=== PATIENT | male | born 1945 | race Caucasian/White ===

== ENCOUNTER → 2016-12-27 | Outpatient (CLI) | payer MEDICARE, OTHER ==
[~2016-12-27] MED LIST: ASPI-110 PO; ATEN50TA PO; CLON0.5T PO; COMMODE 3-IN-11 MIS; COMMODE BEDSIDE1 MI1; DILA100C PO; FURO40TA PO; MULT-65 PO; OMEP20TA PO; PERC5TAB12 PO; POTA-163 PO; ROSU40 PO; WALKER WHEELS/F1 MIS; XARE10TA PO; ZETI10TA5 PO
[2016-12-27 12:23] LABS: AUTOMATED NEUTROPHIL # 5.5 TH/MM3 (1.8-7.7); BASOPHIL % 0.3 % (0.0-2.0); EOSINOPHIL % 0.2 % (0.0-4.0); HEMATOCRIT 43.7 % (39.0-51.0); LYMPH % 20.1 % (9.0-44.0); LYMPHOCYTE # 1.5 TH/MM3 (1.0-4.8); MEAN CORPUSCULAR HEMOGLOBIN 31.3 PG (27.0-34.0); MEAN CORPUSCULAR HGB CONC 34.4 % (32.0-36.0); MONO % 7.6 % (0.0-8.0); NEUT % 71.8 % (16.0-70.0); WHITE BLOOD COUNT 7.6 TH/MM3 (4.0-11.0)
[2016-12-27 12:27] LABS: HEMO FLAGS AUTO DIFF
[2016-12-27 12:29] LABS: PROTHROMBIN TIME - PATIENT 10.7 SEC (9.8-11.6)
[2016-12-27 12:44] LABS: ANION GAP 5 MEQ/L (5-15); AST (GOT) 32 U/L (15-37); BICARBONATE 29.9 MEQ/L (21.0-32.0); BLOOD UREA NITROGEN 9 MG/DL (7-18); CHLORIDE 104 MEQ/L (98-107); GLOMERULAR FILTRATION RATE 84 ML/MIN (>89); GLUCOSE,FASTING 99 MG/DL (74-99); POTASSIUM 3.7 MEQ/L (3.5-5.1); SODIUM (NA) 139 MEQ/L (136-145)
[2016-12-27 12:46] LABS: ALT (GPT) 50 U/L (12-78)
[2016-12-27 12:47] LABS: ALKALINE PHOSPHATASE 107 U/L (45-117); TOTAL BILIRUBIN ADULT 0.3 MG/DL (0.2-1.0)
[2016-12-27 13:31] LABS: PLATELET COUNT 75 TH/MM3 (150-450); SCAN/DIFF AUTO DIFF CONFIRMED
[2016-12-27 14:06] LABS: BLOOD, URINE NEG (NEG); COMMENT (UR) CULT NOT INDICATED; CULTURE IF INDICATED CULT NOT INDICATED; GLUCOSE,URINE NEG (NEG); KETONE, URINE NEG (NEG); NITRITE,URINE NEG (NEG); URINE COLOR LIGHT-YELLOW (YELLW/STRAW)
--- NOTE | 2016-12-27 14:39 | RADRPT ---
EXAM DATE/TIME: 12/27/2016 11:59 [facility] COMPARISON: No previous studies available for comparison. INDICATIONS : Pre-op to evaluate for pneumonia, pneumothorax, or communicable diseases. Right total hip replacemen t. MEDICAL HISTORY : None. SURGICAL HISTORY : None. ENCOUNTER: Initial ACUITY: 1 day PAIN SCORE: 0/10 LOCATION: Bilateral chest FINDINGS: The heart and mediastinal structures are normal. The pulmonary vascular pattern is normal. The lung s are clear. Degenerative changes are noted throughout the thoracic spine. Bilateral shoulder repla cements are noted. CONCLUSION: 1. No acute cardiopulmonary disease. 2. Degenerative changes throughout the thoracic spine. Valentin Calhoun MD on December 27, 2016 at 14:27 Board Certified Radiologist. This report was verified electronically.
--- NOTE | 2016-12-28 13:02 | EKG ---
Date Performed: 12/27/2016 Time Performed: 11:06:31 PTAGE: 71 years EKG: Sinus rhythm NORMAL ECG NO PREVIOUS TRACING DOCTOR: Carlo Dale Interpretating Date/Time 12/28/2016 12:53:45
== END ==
LOC: CPRE 10:11
PROVIDERS: ATTEND Orthopaedic Surgery
DX: Z01.810 Encounter for preprocedural cardiovascular examination (principal); Z01.812 Encounter for preprocedural laboratory examination
CPT/HCPCS: 36415; 71020; 80053; 81001; 85025; 85610; 93005

== ENCOUNTER 2017-01-01 10:19 | Inpatient (IN) | payer MEDICARE, OTHER ==
[~2017-01-01] VITALS: Ht 172.7 cm; Wt 81.0 kg
[~2017-01-01 10:19] MED LIST changes: -COMMODE 3-IN-11 MIS; -COMMODE BEDSIDE1 MI1; -PERC5TAB12 PO; -WALKER WHEELS/F1 MIS; -XARE10TA PO
[2017-01-11] MEDS ORDERED: SODIUM CHLORID 0.9% 500 ML IV PRN (11:30)
[2017-01-11] MEDS ORDERED: LACTATED RINGER'S 1000 ML IV PRN (11:30)
[2017-01-11] MEDS ORDERED: METOPROLOL TARTRATE 25 MG TAB PO PRN (11:30)
[2017-01-11] MEDS ORDERED: INSULIN HUMAN REGULAR 1,000 UNITS/10 ML VIAL SQ PRN (11:30)
[2017-01-11] MEDS ORDERED: POVIDONE IODINE 5% (ANTISEPSIS KIT) 4 APPLICATIONS EACH NARE PRN (11:30)
[2017-01-11] MEDS ORDERED: CHLORHEXIDINE GLUCONATE 2 % 1 PACK (2 CLOTHS) TOPICAL PRN (11:30)
[2017-01-11] MEDS ORDERED: DILA100C PO (11:35)
[2017-01-11] MEDS ORDERED: VANCOMYCIN 1000 MG/NS 250 ML (for <70 kg) IV SCH ×2 (11:45)
[2017-01-11] MEDS ORDERED: POVIDONE IODINE 7.5% SCRUB 118 ML BOTTLE TOPICAL SCH (11:45)
[2017-01-11] MEDS ORDERED: TRANEXAMIC ACID 1 GM PRIOR TO PROCEDURE IV SCH ×2 (11:45)
[2017-01-11] MEDS ORDERED: ceFAZolin 2 GM PREMIX 50 ML IV SCH (11:45)
[2017-01-11] MEDS ORDERED: EXPAREL PERI-ARTICULAR INJECTION (TOTAL VOL. 60 ML) P-ARTICULR SCH ×2 (11:45)
[2017-01-11] MEDS ORDERED: GLYCOPYRROLATE 1 MG/5 ML SYRINGE IV PUSH ONE (12:00)
[2017-01-11] MEDS ORDERED: MIDAZOLAM HCL 2 MG/2 ML VIAL IV ONE (12:00)
[2017-01-11] MEDS ORDERED: NEOSTIGMINE 3 MG/3 ML SYR IV ONE (12:00)
[2017-01-11] MEDS ORDERED: DEXAMETHASONE SOD PHOS 4 MG/ML VIAL IV ONE (12:00)
[2017-01-11] MEDS ORDERED: ONDANSETRON HCL 4 MG/2 ML VIAL IV PUSH ONE (12:00)
--- NOTE | 2017-01-11 13:09 | HHI.DS ---
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 Failed conservative treatment and now presents for right MARYANA. Hospital Course patient was taken to OR in stable condition for the above procedure which he tolerated well. he was extubated and transferred to PACU in stable condition. The rest of his stay was uneventful. His diet was advanced. he had full return of bowel and bladder function. his pain meds was converted from iv to po. He was seen by PT and dc with PT recommendation. WBAT. he was seen and examined by our team on the day of discharge and found to be in stable. d/c home with [facility]. f /u 2 wks. Stable at d/c. Pt Condition on Discharge: Good Discharge Disposition: Disch w/ Home Health Serv Discharge Instructions Diet Instructions: As Tolerated, No Restrictions, Heart Healthy Diet Activities You Can Perform: Regular-No Restrictions Activities to Avoid: Driving for 24 hrs, Weight Bearing Olaf Weinberg Jr., MD Jan 11, 2017 13:09
[2017-01-11] MEDS ORDERED: PERC5TAB12 PO (13:10)
[2017-01-11] MEDS ORDERED: XARE10TA PO (13:10)
[2017-01-11] MEDS ORDERED: MIDAZOLAM HCL 2 MG/2 ML VIAL ONE (13:25)
[2017-01-11] MEDS ORDERED: GENTAMICIN SULFATE 80 MG/2 ML VIAL ONE (13:25)
[2017-01-11] MEDS ORDERED: FAMOTIDINE 20 MG/2 ML VIAL ONE (13:25)
[2017-01-11] MEDS ORDERED: ACETAMINOPHEN 1000 MG/100 ML 100 ML IV ONE (13:26)
[2017-01-11] MEDS ORDERED: SUGAMMADEX SODIUM 200 MG/2 ML VIAL IV PUSH ONE ×2 (13:26)
[2017-01-11] MEDS ORDERED: TRANEXAMIC ACID 1 GM POST-OP IV SCH ×2 (15:00)
[2017-01-11] MEDS ORDERED: ceFAZolin INJ 1,000 MG VIAL ONE (15:20)
[2017-01-11] MEDS ORDERED: HYDROmorphone HCL PF 2 MG/ML VIAL ONE (15:20)
[2017-01-11 17:27] LABS: HEMATOCRIT 31.7 % (39.0-51.0); REVIEW FLAG FINAL
[2017-01-11] MEDS ORDERED: SODIUM CHLORIDE 0.9% FLUSH 10 ML FLUSH IV FLUSH PRN (17:30)
[2017-01-11] MEDS ORDERED: LACTULOSE SYRUP 20 GM/30 ML CUP PO PRN (17:30)
[2017-01-11] MEDS ORDERED: oxyCODONE/ACETAMINOPHEN 5 MG/325 MG TAB PO PRN (17:30)
[2017-01-11] MEDS ORDERED: Post-op Orders (for Pharmacy) MISC XX ONE (17:30)
[2017-01-11] MEDS ORDERED: SENNOSIDES 8.6 MG TAB PO PRN (17:30)
[2017-01-11] MEDS ORDERED: PROMETHAZINE HCL 25 MG SUPP RECTAL PRN (17:30)
[2017-01-11] MEDS ORDERED: ZOLPIDEM TARTRATE 5 MG TAB PO PRN (17:30)
[2017-01-11] MEDS ORDERED: BISACODYL 10 MG SUPP RECTAL PRN (17:30)
[2017-01-11] MEDS ORDERED: ACETAMINOPHEN 325 MG TAB PO PRN (17:30)
--- NOTE | 2017-01-11 17:30 | RADRPT ---
EXAM DATE/TIME: 01/11/2017 15:37 [facility] COMPARISON: No previous studies available for comparison. INDICATIONS : Total right hip arthroplasty. MEDICAL HISTORY : None. SURGICAL HISTORY : Total hip replacement, left. ENCOUNTER: Initial ACUITY: 1 day PAIN SCORE: Non-responsive. LOCATION: Right hip FINDINGS: Postoperative bilateral total hip replacement. No complicating features on the right. CONCLUSION: 1. Postoperative right total hip replacement. Luis Briscoe MD on January 11, 2017 at 17:25 Board Certified Radiologist. This report was verified electronically.
[2017-01-11] MEDS ORDERED: DO NOT ADM ANY ANTICOAGULANT DRUGS PRN (17:33)
--- NOTE | 2017-01-11 17:35 | PD.OP ---
cc: Olaf Weinberg Jr., MD Operative Report Date of Surgery: Jan 11, 2017 Preoperative Diagnosis: Right hip end-stage arthritis from avascular necrosis Postoperative Diagnosis: Same Procedure: Right total hip replacement through anterior approach Anesthesia: Gen. Surgeon: Olaf Weinberg Supervisor Boarding(s): MAGDA Orellana The surgical procedure was assisted by my Advanced Registered Nurse Practitioner. My CAM MAKER presence was necessary throughout this case for the manipulation and positioning of the surgical extremity. My CAM MAKER was assisting me throughout the duration of this procedure. The skill set of an Advance Registered Nurse Practitioner was medically necessary to complete this procedure. During the surgical case, the technology project manager was working at the back table and the Advance Registered Nurse Practitioner was directly assisting me. Resident Surgeon: None Operation and Findings: DETAILS OF PROCEDURE: This patient has a long history of right hip pain. Patient was found to have severe osteoarthritis secondary to avascular necrosis. The patient had radiographic evidence of joint space narrowing with [id number] arthritis and osteophytes around the acetabulum as well as the femoral head. There was also some cystic changes. The patient failed conservative treatment with pain medications, anti-inflammatories, physical therapy, assistive devices including a cane, as well as therapeutic injection of the hip. The patient wished to proceed with surgery and informed consent was obtained. Operative site was marked. I discussed both posterior approach and anterior approach. The patient decided on anterior approach. Patient was brought to OR and placed on OR table. IV sedation and general anesthesia was administered by anesthesiologist. Patient positioned on a Juli table and was given IV antibiotics. Time-out procedure was performed. The right hip and thigh were prepped with alcohol followed by Hibiclens. The thigh was draped in the usual sterile fashion. Clean Air Suite was used for this procedure. The procedure began with a 5-inch incision over the anterolateral thigh. Subcutaneous tissue was dissected with Bovie. The fascia over the tensa fasciae latae was incised. Care was taken to avoid injury to the lateral femoral cutaneous nerve. The tensor muscle was retracted laterally. Sartorius was retracted medially. Retractors were now placed. The reflected head of the rectus is now elevated. A capsulotomy was performed over the anterior head capsule. Sutures were placed to help retract the capsule. At this point the femoral head and neck were identified. With soft tissue protected, oscillating saw was used to make a cut through the femoral neck, the femoral head was now removed. At this point attention was turned to preparation of the acetabulum. The labrum was excised. The acetabulum was sequentially reamed up to size 53. A 54 [place] cup was now placed. Fluoroscopy was used to aid in identification of appropriate version. Cup was fully impacted and found to have excellent fit. Hole eliminator was now placed. The liner was now impacted into the cup. At this point the hip was externally rotated. A hook was placed around the proximal femur. The capsule was released off the lateral and medial femur. The hip was now extended and adducted. Retractors were placed around the proximal femur to allow for exposure. A box osteotome was used to remove the lateral cortex of the femoral neck. A broach was used to help lateralize the prosthesis. Canal finder was used to create a path down the canal. Next, the canal was sequentially broached up to size 6. This was found to be an excellent fit. Calcar planer was placed. A standard head was placed, hip was reduced. Trial head was now was placed and the hip was found to have excellent stability with good range of motion. The leg lengths were measured under fluoroscopy and found to be equal compared to preoperatively. Trial broach was removed. The Corail stem was opened. Stem was fully impacted into the proximal femur in appropriate version. The femoral head was placed. The hip was again reduced. Fluoroscopy confirmed excellent alignment of prosthesis. The wound was thoroughly irrigated and capsule was closed with #1 Vicryl. The fascia over the tensor fasciae muscle was closed with #1 Vicryl, subcutaneous tissue was closed with 3-0 Vicryl and the skin was closed with cici and Dermabond skin closure. The capsule layers were injected with a mixture of saline and bupivicaine. Dressings were applied. The patient was transferred to Recovery Room in stable condition. IMPLANTS USED Striker accolade II 54 mm tritanium cluster cup 6.525 mLm screw 36 neutral liner 6/132 stem 36+0 ceramic head POSTP-OP PLAN OF ACTIVITY Antibiotics: Ancef, vancomycin Antiocoagulation: Lovenox while hospitalized (xeralto at discharge for 30 days) Weight bearing status: wbat PT/OT: Encourage at least 3 times a day Dressing: Do not remove Dispo: expected discharge 3 days. likely SNF Olaf Weinberg Jr., MD Jan 11, 2017 17:35
[2017-01-11] MEDS: KETOROLAC TROMETHAMINE 30 MG/ML (IVP) VIAL IVP SCH ×2 (18:00→23:54)
[2017-01-11] MEDS ORDERED: ENOXAPARIN SODIUM 30 MG/0.3 ML SYRINGE SQ SCH (18:00)
[2017-01-11] MEDS ORDERED: TRANEXAMIC ACID INJ 1,000 MG in SODIUM CHLORIDE 0.9% INJ 100 ML IV SCH (18:30)
[2017-01-11] MEDS ORDERED: *morphine SULFATE 8 MG/ML PERIprocedure ONLY ONE ×2 (18:38→19:19)
--- NOTE | 2017-01-11 18:49 | RADRPT ---
EXAM DATE/TIME: 01/11/2017 18:08 [facility] COMPARISON: HIP RIGHT (AP&LAT 2/3VWS) W AP PELVIS, January 11, 2017, 15:37. INDICATIONS : Post op right total hip. MEDICAL HISTORY : Unobtainable. SURGICAL HISTORY : unobtainable. ENCOUNTER: Subsequent ACUITY: 1 day PAIN SCORE: Non-responsive. LOCATION: Right hip FINDINGS: Patient is immediately postoperative right total hip arthroplasty. Alignment is normal. No fracture o r evidence of hardware failure/loosening. Radiographically apparent of the soft tissues within normal limits. CONCLUSION: Right total hip arthroplasty has an expected postoperative radiographic appearance. No acute complica tion demonstrated. Noe Bhandari MD on January 11, 2017 at 18:47 Board Certified Radiologist. This report was verified electronically.
[2017-01-11 18:53] LABS: HEMATOCRIT 33.3 % (39.0-51.0); REVIEW FLAG FINAL
[2017-01-11] MEDS: SODIUM CHLOR 0.9% 1000 ML INJ 1,000 ML IV SCH (19:15)
[2017-01-11 20:00] VITALS: BP 105/62; PULSE 75; RESP 18; TEMP 96; O2SAT 100
[2017-01-11 20:27] VITALS: O2SAT 99
[2017-01-11] MEDS: DOCUSATE SODIUM 50 MG/SENNA 8.6 MG TAB PO SCH (20:51)
[2017-01-11] MEDS: oxyCODONE/ACETAMINOPHEN 5 MG/325 MG TAB PO PRN (20:51)
[2017-01-11] MEDS: SODIUM CHLORIDE 0.9% FLUSH 10 ML FLUSH IV FLUSH SCH (20:51)
[2017-01-11] MEDS: VANCOMYCIN INJ 1,000 MG in SODIUM CHLOR 0.9% 250 ML INJ 250 ML IV SCH (23:52)
[2017-01-11] MEDS: MORPHINE SULFATE 8 MG/ML INJ IV PUSH PRN (23:54)
[2017-01-12] VITALS (7 sets, daily range): BP systolic 92–137; BP diastolic 52–64; PULSE 77–81; RESP 16–18; TEMP 96.7–98.3; O2SAT 96–100
[2017-01-12] MEDS: oxyCODONE/ACETAMINOPHEN 5 MG/325 MG TAB PO PRN ×3 (04:55→21:05)
[2017-01-12] MEDS ORDERED: ENOXAPARIN SODIUM 30 MG/0.3 ML SYRINGE SQ SCH (06:00)
[2017-01-12] MEDS: ENOXAPARIN SODIUM 30 MG/0.3 ML SYRINGE SQ SCH ×2 (06:07→17:59)
[2017-01-12] MEDS: KETOROLAC TROMETHAMINE 30 MG/ML (IVP) VIAL IVP SCH ×3 (06:08→18:01)
[2017-01-12] MEDS: FUROSEMIDE 40 MG TAB PO SCH (08:43)
[2017-01-12] MEDS: DOCUSATE SODIUM 50 MG/SENNA 8.6 MG TAB PO SCH ×2 (08:43→21:04)
[2017-01-12] MEDS: ATENOLOL 50 MG TAB PO SCH (08:43)
[2017-01-12] MEDS: PHENYTOIN SODIUM 100 MG CAP PO SCH (08:44)
[2017-01-12] MEDS: POTASSIUM CHLORIDE 20 MEQ CONTROLLED RELEASE TAB PO SCH (08:44)
[2017-01-12] MEDS: SODIUM CHLORIDE 0.9% FLUSH 10 ML FLUSH IV FLUSH SCH ×2 (08:45→21:04)
[2017-01-12] MEDS: SODIUM CHLOR 0.9% 1000 ML INJ 1,000 ML IV SCH (08:46)
[2017-01-12] MEDS ORDERED: ATORVASTATIN 40 MG TAB PO SCH (09:00)
[2017-01-12] MEDS ORDERED: EZETIMIBE 10 MG TAB PO SCH (09:00)
[2017-01-12] MEDS ORDERED: COMMODE BEDSIDE1 MI1 (09:43)
--- NOTE | 2017-01-12 10:42 | PD.CONS ---
HPI Service [facility] Hospitalists Consult Requested By Dr. Weinberg Reason for Consult Medical Management Primary Care Physician Kilo Saravia M.D. Diagnoses: (1) Avascular necrosis of bone of right hip (2) Status post total hip replacement, right History of Present Illness Written by Rebeca Lewis, acting as scribe for Dr. Cook on 01/12/17 at 10: 37. 71-year-old male with history of CAD s/p stents x2, HTN, HLD, GERD, anxiety, and daily marijuana use presented to the hospital with right hip end-stage arthritis from avascular necrosis, now s/p right total hip replacement by Dr. Weinberg on 01/11. Hospitalists consulted for medical management. The patient reports other than ongoing right hip pain, he has been feeling well prior to admission. He denies any recent fevers/chills, lightheadedness, dizziness, chest pains, palpitations, shortness of breath, abdominal or urinary complaints. His last bowel movement was yesterday. He had a stress test done 1 week ago through his collection technician Dr. Story's office which was reportedly unremarkable. He denies any history of arrhythmia or CHF. Denies any history of DVT or PE. Currently post surgery, his pain is fairly well controlled with Percocet and IV morphine. He has no other medical complaints at this time. Review of Systems Except as stated in HPI: all other systems reviewed are Neg Past Family Social History Allergies: Coded Allergies: No Known Allergies (Unverified , 01/11/17) Past Medical History Osteoarthritis Right hip avascular necrosis CAD s/p stents x2 HTN HLD GERD anxiety Past Surgical History Bilateral hip surgeries Bilateral shoulder surgeries Cardiac catheterization with stents x2 Tonsillectomy Reported Medications Dilantin (Phenytoin Extended) 100 Mg Cap 300 Mg PO DAILY Multi-Vitamin Daily (Multiple Vitamin) 1 Tab Tab 1 Tab PO DAILY Omeprazole 20 Mg Tab 20 Mg PO DAILY Clonazepam 0.5 Mg Tab 0.5 Mg PO DAILY Atenolol 50 Mg Tab 50 Mg PO DAILY Potassium Chloride ER (Potassium Chloride) 20 Meq Tab 20 Meq PO DAILY Furosemide 40 Mg Tab 40 Mg PO DAILY Zetia (Ezetimibe) 10 Mg Tab 10 Mg PO DAILY Crestor (Rosuvastatin Calcium) 40 Mg Tab 40 Mg PO DAILY Active Ordered Medications Current Medications Medications (Trade) Dose Ordered Sig/Jose Route Start Time Stop Time Status Last Admin Lactated Ringer's 1,000 ml @ 30 mls/hr Q24H PRN IV 01/11/17 11:30 01/14/17 11:29 01/11/17 11:40 Sodium Chloride 500 ml @ 30 mls/hr [id number] PRN IV 01/11/17 11:30 01/14/17 11:29 (Lopressor) 25 mg BOARDING KENNEL OR CATTERY OPERATOR PRN PO 01/11/17 11:30 01/14/17 11:29 (Betadine 5% Antisepsis Kit) 1 applic BOARDING KENNEL OR CATTERY OPERATOR PRN EACH NARE 01/11/17 11:30 01/14/17 11:29 01/11/17 11:45 (Chlorhexidine 2% Cloth) 3 pack BOARDING KENNEL OR CATTERY OPERATOR PRN TOPICAL 01/11/17 11:30 01/14/17 11:29 (NovoLIN R INJ) See Protocol Table ... BOARDING KENNEL OR CATTERY OPERATOR PRN SQ 01/11/17 11:30 01/14/17 11:29 (Betadine 7.5% Scrub) 1 applic ONCE TOPICAL 01/11/17 11:45 01/14/17 11:44 01/11/17 11:45 Cefazolin Sodium/ Dextrose 50 ml @ 100 mls/hr BOARDING KENNEL OR CATTERY OPERATOR IV 01/11/17 11:45 01/14/17 11:44 Vancomycin HCl 1000 mg/Sodium Chloride 250 ml @ 250 mls/hr BOARDING KENNEL OR CATTERY OPERATOR IV 01/11/17 11:45 01/14/17 11:44 01/11/17 11:50 (Tenormin) 50 mg DAILY PO 01/12/17 09:00 01/12/17 08:43 (Zetia) 10 mg DAILY PO 01/12/17 09:00 01/12/17 08:43 (Lasix) 40 mg DAILY PO 01/12/17 09:00 01/12/17 08:43 (Dilantin) 300 mg DAILY PO 01/12/17 09:00 01/12/17 08:44 (KCl) 20 meq DAILY PO 01/12/17 09:00 01/12/17 08:44 (Lipitor) 40 mg DAILY PO 01/12/17 09:00 01/12/17 08:43 (NS Flush) 2 ml UNSCH PRN IV FLUSH 01/11/17 17:30 (NS Flush) 2 ml BID IV FLUSH 01/11/17 21:00 01/12/17 08:45 Vancomycin HCl 1000 mg/Sodium Chloride 250 ml @ 250 mls/hr Q12H IV 01/12/17 00:00 01/12/17 12:59 01/11/17 23:52 (Morphine Inj) 5 mg Q3H PRN IV PUSH 01/11/17 17:30 01/11/17 23:54 (Percocet 5-325 Mg) 1 tab Q4H PRN PO 01/11/17 17:30 (Percocet 5-325 Mg) 2 tab Q4H PRN PO 01/11/17 17:30 01/12/17 04:55 (Tylenol) 650 mg Q6H PRN PO 01/11/17 17:30 (Toradol Inj) 15 mg Q6H IVP 01/11/17 18:00 01/13/17 12:01 01/12/17 06:08 (Phenergan) 25 mg Q4H PRN PO 01/11/17 17:30 (Phenergan Supp) 25 mg Q4H PRN RECTAL 01/11/17 17:30 (Theragran M Tab) 1 tab BID PO 01/12/17 21:00 03/13/17 20:59 (Ambien) 5 mg HS PRN PO 01/11/17 17:30 (Bruna-Colace) 1 tab BID PO 01/11/17 21:00 01/12/17 08:43 (Milk Of Magnesia Liq) 30 ml Q12H PRN PO 01/11/17 17:30 (Senokot) 17.2 mg Q12H PRN PO 01/11/17 17:30 (Dulcolax Supp) 10 mg DAILY PRN RECTAL 01/11/17 17:30 (Lactulose Liq) 30 ml DAILY PRN PO 01/11/17 17:30 Sodium Chloride 1,000 ml @ 75 mls/hr [id number] IV 01/11/17 19:15 01/12/17 08:46 Miscellaneous Information ALL NURSING DEPARTME... UNSCH PRN .XX 01/11/17 17:33 01/12/17 17:32 (Lovenox Inj) 30 mg Q12H SQ 01/12/17 06:00 01/12/17 06:07 Family History Father with significant heart disease, 4 MIs total, 1st TX at age 45, last TX at age 65 Mother with Alzheimer's, age 87 Social History Denies any tobacco or alcohol use Smokes marijuana 2-3x/day Denies any other illicit drug use Physical Exam Vital Signs Vital Signs Date Time Temp Pulse Resp B/P (MAP) Pulse Ox O2 Delivery O2 Flow Rate FiO2 01/12/17 08:16 16 01/12/17 04:00 96.7 81 17 92/54 (67) 100 01/12/17 00:00 97.1 78 16 98/58 (71) 100 01/11/17 20:27 99 Nasal Cannula 2.00 01/11/17 20:15 100 Nasal Cannula 2.00 01/11/17 20:00 96.0 75 18 105/62 (76) 100 01/11/17 19:38 97.8 74 17 116/68 (84) 100 Nasal Cannula 3 01/11/17 19:00 64 15 127/71 (89) 99 Nasal Cannula 3 01/11/17 18:45 71 15 123/68 (86) 98 Nasal Cannula 3 01/11/17 18:30 74 16 123/70 (87) 98 Nasal Cannula 3 01/11/17 18:15 78 15 128/72 (90) 98 Nasal Cannula 3 01/11/17 18:00 97.4 91 15 123/77 (92) 99 Nasal Cannula 3 01/11/17 11:30 98.3 57 20 115/64 (81) 99 Physical Exam GENERAL: Well-nourished, well-developed pleasant male patient in [facility]. SKIN: Warm and dry. No rash. HEAD: Normocephalic. Atraumatic. EYES: Pupils equal and round. No scleral icterus. No injection or drainage. ENT: No nasal bleeding or discharge. Mucous membranes pink and moist. NECK: Supple. Trachea midline. +JVD. CARDIOVASCULAR: Regular rate and rhythm. S1, S2 noted. No murmur appreciated. RESPIRATORY: No accessory muscle use. Clear to auscultation. Breath sounds equal bilaterally. GASTROINTESTINAL: Abdomen soft, non-tender, nondistended. Normoactive bowel sounds x4. MUSCULOSKELETAL: No obvious deformities. Extremities without clubbing, cyanosis , or edema. NEUROLOGICAL: Awake and alert. No obvious cranial nerve deficits. Motor grossly within normal limits. Bilateral upper extremity strength 5/5. Lower extremity strength testing deferred secondary to surgery. Normal speech. PSYCHIATRIC: Appropriate mood and affect; insight and judgment normal. Laboratory Laboratory Tests Test 01/11/17 16:43 01/11/17 18:28 Hemoglobin 11.2 11.3 Hematocrit 31.7 33.3 Result Diagram: 01/11/17 1828 Imaging Last Impressions Hip and Pelvis X-Ray 01/11/17 0000 Signed Impressions: Service Date/Time: December 18:08 - CONCLUSION: Right total hip arthroplasty has an expected postoperative radiographic appearance. No acute complication demonstrated. Noe Bhandari MD Assessment and Plan Problem List: (1) Status post total hip replacement, right ICD Code: Z96.641 - Presence of right artificial hip joint (2) Avascular necrosis of bone of right hip ICD Code: M87.051 - Idiopathic aseptic necrosis of right femur (3) CAD (coronary artery disease) ICD Code: I25.10 - Atherosclerotic heart disease of [place] coronary artery without angina pectoris Status: Chronic (4) HTN (hypertension) ICD Code: I10 - Essential (primary) hypertension Status: Chronic (5) HLD (hyperlipidemia) ICD Code: E78.5 - Hyperlipidemia, unspecified Status: Chronic (6) GERD (gastroesophageal reflux disease) ICD Code: K21.9 - Gastro-esophageal reflux disease without esophagitis Status: Chronic (7) Anxiety ICD Code: F41.9 - Anxiety disorder, unspecified Status: Chronic Assessment and Plan 71-year-old male with history of CAD s/p stents x2, HTN, HLD, GERD, anxiety, and daily marijuana use presented to the hospital with right hip end-stage arthritis from avascular necrosis, now s/p right total hip replacement by Dr. Weinberg on 01/11. Hospitalists consulted for medical management. Right Hip End-Stage Arthritis with Avascular Necrosis: s/p Right Total Hip Replacement 01/11/[address] Weinberg. -continue pain control with percocet prn and IV morphine prn -DVT prophylaxis with Xarelto per ortho -anticipate discharge on Monday 01/15 per attending -bowel regimen while on narcotics, monitor BMs CAD/HTN/HLD: chronic, appears stable. Patient had outpatient stress test 1 week ago, reportedly unremarkable. Banking Representative is Dr. Story. -continue home medications including zetia, crestor, atenolol, lasix with KCl replacement -monitor BP, adjust antihypertensives as needed Anxiety: chronic, stable -continue patient's home clonazepam 0.5mg daily GERD: chronic, stable -continue PPI DVT Prophylaxis: Xarelto Discussed Condition With Patient, RN Medical Decision Making MDM Remarks This note was transcribed by anitha Lewis. I, Dr. Andres Cook personally performed the history, physical exam, and medical decision making; and confirmed the accuracy of the information in the transcribed note. Authenticated by Dr. Andres Cook on 01/12/17 at 15:29. Rebeca Lewis PA-C Jan 12, 2017 10:42 Andres Cook MD Jan 12, 2017 15:30
[2017-01-12] MEDS: VANCOMYCIN INJ 1,000 MG in SODIUM CHLOR 0.9% 250 ML INJ 250 ML IV SCH (12:01)
--- NOTE | 2017-01-12 20:30 | HHI.FF ---
Face to Face Verification Diagnosis: (1) Status post total hip replacement, right Physical Therapy Gait training Hip: Total hip, Other (anterior hip precautions.), Protocol: Right Right LE Weight Bearing: WB as tolerated Right LE Range of Motion: Active ROM Nursing RN: 3 days/week x 2 weeks Nursing: Dressing changes, Other Dressing Changes: Do not change dressing, Other (reinforce only) I have seen patient Josr Grider on 01/12/17. My clinical findings support the need for the requested home health care services because: Limited ability to care for self High risk of falls I certify that my clinical findings support that this patient is homebound because: Post-op weakness Unsteady gait/balance Unable to use public transportation Olaf Weinberg Jr., MD Jan 12, 2017 20:30
[2017-01-12] MEDS ORDERED: WALKER WHEELS/F1 MIS (20:35)
[2017-01-12] MEDS ORDERED: COMMODE 3-IN-11 MIS (20:35)
--- NOTE | 2017-01-12 20:37 | PD.ORT.PN ---
Subjective Subjective Remarks Doing well. No issues. No chest pain or shortness of breath Objective Vitals Vital Signs Date Time Temp Pulse Resp B/P (MAP) Pulse Ox O2 Delivery O2 Flow Rate FiO2 01/12/17 18:58 Room Air 01/12/17 16:00 98.1 79 18 109/53 (71) 96 01/12/17 13:25 16 01/12/17 13:24 16 01/12/17 12:00 98.3 77 18 101/55 (70) 100 01/12/17 09:10 98 21 01/12/17 08:00 97.5 80 18 105/52 (69) 98 01/12/17 04:00 96.7 81 17 92/54 (67) 100 01/12/17 00:00 97.1 78 16 98/58 (71) 100 I/O 01/11/17 01/11/17 01/11/17 01/12/17 01/12/17 01/12/17 07:00 15:00 23:00 07:00 15:00 23:00 Intake Total 250 ml 3942 ml 1580 ml 600 ml Output Total 1225 ml 200 ml 600 ml Balance 250 ml 2717 ml 1380 ml 0 ml Intake Oral 480 ml 480 ml 600 ml IV Total 250 ml 200 ml 1100 ml Platelets 762 ml Other 2500 ml Output Urine Total 725 ml 200 ml 600 ml Estimated Blood Loss 500 ml # Voids 1 # Bowel Movements 0 0 0 Result Diagram: 01/11/171827 Objective Remarks Alert awake and oriented -3. No acute distress. Pulmonary: Normal respiratory effort. Right lower extremity: Neurovascularly intact, +EHL/FHL, dressing clean, dry and intact. + PT/DP pulses. Supple compartments. Negative Homans sign. Left lower extremity: neurovascularly intact Assessment & Plan Assessment and Plan POD #1, Right total hip arthroplasty Doing well, expected postop pain, no complaints. Antibiotics: Ancef, vancomycin DVT prophylaxis, Lovenox while in hospital (xeralto at discharge for 4 weeks) Weightbearing status: As tolerated Dressing change: Reinforce as needed. Do not change. Dispo: Stable and okay to discharge from orthopedic standpoint. Likely DC home with home health,Sunday or Sunday Follow-up: 2 weeks, Dr. Weinberg, [facility] Olaf Casas Jr., MD Jan 12, 2017 20:37
[2017-01-12] MEDS: MULTIVITAMINS/MINERALS THERAPEUTIC TAB PO SCH (21:04)
[2017-01-12] MEDS: PROMETHAZINE HCL 25 MG TAB PO PRN (21:04)
[2017-01-13] VITALS (7 sets, daily range): BP systolic 102–121; BP diastolic 56–64; PULSE 79–97; RESP 18–20; TEMP 99–99.8; O2SAT 97–99
[2017-01-13] MEDS: KETOROLAC TROMETHAMINE 30 MG/ML (IVP) VIAL IVP SCH ×3 (00:09→11:41)
[2017-01-13] MEDS: ENOXAPARIN SODIUM 30 MG/0.3 ML SYRINGE SQ SCH ×2 (05:58→17:57)
--- NOTE | 2017-01-13 07:32 | HHI.PR ---
Subjective Remarks Follow-up for right hip end-stage arthritis and avascular necrosis status post right total hip replacement. Patient is resting well in bed. However, he had significant acid reflux overnight. No fever or chills. His pain is well controlled. Objective Vitals Vital Signs Date Time Temp Pulse Resp B/P (MAP) Pulse Ox O2 Delivery O2 Flow Rate FiO2 01/13/17 04:00 99.8 79 19 102/56 (71) 97 01/13/17 00:00 99.8 82 20 121/59 (79) 97 01/12/17 20:40 96.7 79 18 137/64 (88) 99 01/12/17 18:58 Room Air 01/12/17 16:00 98.1 79 18 109/53 (71) 96 01/12/17 13:25 16 01/12/17 13:24 16 01/12/17 12:00 98.3 77 18 101/55 (70) 100 01/12/17 09:10 98 21 01/12/17 08:00 97.5 80 18 105/52 (69) 98 I/O 01/12/17 01/12/17 01/12/17 01/13/17 01/13/17 01/13/17 07:00 15:00 23:00 07:00 15:00 23:00 Intake Total 1580 ml 600 ml 240 ml 1200 ml Output Total 200 ml 600 ml 200 ml 1300 ml Balance 1380 ml 0 ml 40 ml -100 ml Intake Oral 480 ml 600 ml 240 ml 1200 ml IV Total 1100 ml Output Urine Total 200 ml 600 ml 200 ml 1300 ml # Bowel Movements 0 0 0 Result Diagram: 01/11/17 1828 Imaging Last Impressions Hip and Pelvis X-Ray 01/11/17 0000 Signed Impressions: Service Date/Time: December 18:08 - CONCLUSION: Right total hip arthroplasty has an expected postoperative radiographic appearance. No acute complication demonstrated. Noe Bhandari MD Objective Remarks GENERAL: Alert, oriented 3, NAD. SKIN: Warm and dry. HEAD: Normocephalic. EYES: No scleral icterus. No injection or drainage. NECK: Supple, trachea midline. No JVD or lymphadenopathy. CARDIOVASCULAR: Regular rate and rhythm without murmurs, gallops, or rubs. RESPIRATORY: Breath sounds equal bilaterally. No accessory muscle use. GASTROINTESTINAL: Abdomen soft, non-tender, nondistended. MUSCULOSKELETAL: No cyanosis, or edema. Status post right total hip replacement. Able to move all toes. BACK: Nontender without obvious deformity. No CVA tenderness. Procedures 01/11/2017 Right total hip replacement through anterior approach A/P Problem List: (1) Status post total hip replacement, right ICD Code: Z96.641 - Presence of right artificial hip joint (2) Avascular necrosis of bone of right hip ICD Code: M87.051 - Idiopathic aseptic necrosis of right femur (3) CAD (coronary artery disease) ICD Code: I25.10 - Atherosclerotic heart disease of [place] coronary artery without angina pectoris Status: Chronic (4) HTN (hypertension) ICD Code: I10 - Essential (primary) hypertension Status: Chronic (5) HLD (hyperlipidemia) ICD Code: E78.5 - Hyperlipidemia, unspecified Status: Chronic (6) GERD (gastroesophageal reflux disease) ICD Code: K21.9 - Gastro-esophageal reflux disease without esophagitis Status: Chronic (7) Anxiety ICD Code: F41.9 - Anxiety disorder, unspecified Status: Chronic Assessment and Plan Mr. Grider is a 71-year-old male with history of CAD s/p stents x2, HTN, HLD, GERD , anxiety, and daily marijuana use presented to the hospital with right hip end- stage arthritis from avascular necrosis, now s/p right total hip replacement by Dr. Weinberg on 01/11. Hospitalist service consulted for medical management. Right Hip End-Stage Arthritis with Avascular Necrosis: s/p Right Total Hip Replacement 01/11/[address] Weinberg. -continue pain control with percocet prn and IV morphine prn -DVT prophylaxis with Lovenox per ortho -anticipate discharge on Monday 01/15 per attending -bowel regimen while on narcotics, monitor BMs CAD/HTN/HLD: chronic, appears stable. Patient had outpatient stress test 1 week ago, reportedly unremarkable. Cotton Farm[employer] is Dr. Story. - Continue atorvastatin 40 mg daily, Zetia 10 mg daily. - Continue Lasix 40 mg daily, atenolol 50 mg daily. Anxiety: chronic, stable -continue patient's home clonazepam 0.5mg daily GERD: chronic, stable - We'll continue Protonix 40 mg daily. Full code, Lovenox 30 mg every 12 hours. Discussed with RN. Che Gonzalez DO Jan 13, 2017 7:32 am
--- NOTE | 2017-01-13 08:10 | PD.ORT.PN ---
Subjective Post Op Day #: 2 Subjective Remarks Patient resting in bed in NAD. Patient is having minimal pain to the right hip. Objective Vitals Vital Signs Date Time Temp Pulse Resp B/P (MAP) Pulse Ox O2 Delivery O2 Flow Rate FiO2 01/13/17 04:00 99.8 79 19 102/56 (71) 97 01/13/17 00:00 99.8 82 20 121/59 (79) 97 01/12/17 20:40 96.7 79 18 137/64 (88) 99 01/12/17 18:58 Room Air 01/12/17 16:00 98.1 79 18 109/53 (71) 96 01/12/17 13:25 16 01/12/17 13:24 16 01/12/17 12:00 98.3 77 18 101/55 (70) 100 01/12/17 09:10 98 21 I/O 01/12/17 01/12/17 01/12/17 01/13/17 01/13/17 01/13/17 07:00 15:00 23:00 07:00 15:00 23:00 Intake Total 1580 ml 600 ml 240 ml 1200 ml Output Total 200 ml 600 ml 200 ml 1300 ml Balance 1380 ml 0 ml 40 ml -100 ml Intake Oral 480 ml 600 ml 240 ml 1200 ml IV Total 1100 ml Output Urine Total 200 ml 600 ml 200 ml 1300 ml # Bowel Movements 0 0 0 Result Diagram: 01/11/17 1828 Procedures Right MARYANA Objective Remarks Alert awake and oriented -3. No acute distress. Pulmonary: Normal respiratory effort. Right lower extremity: Neurovascularly intact, +EHL/FHL, dressing clean, dry and intact. + PT/DP pulses. Supple compartments. Negative Homans sign. Left lower extremity: neurovascularly intact Assessment & Plan Ortho Post Op Day #: 2 Problem List: Assessment and Plan POD #2, Right total hip arthroplasty Doing well, expected postop pain, no complaints. Antibiotics: Ancef, vancomycin DVT prophylaxis, Lovenox while in hospital (xeralto at discharge for 4 weeks) Weightbearing status: As tolerated Dressing change: Reinforce as needed. Do not change. Dispo: Stable and okay to discharge from orthopedic standpoint. Likely DC home with home health,Sunday or Sunday Follow-up: 2 weeks, Dr. Weinberg, [facility] 23, 2017 08:10
[2017-01-13] MEDS: FUROSEMIDE 40 MG TAB PO SCH (09:00)
[2017-01-13] MEDS: ATENOLOL 50 MG TAB PO SCH (09:00)
[2017-01-13] MEDS ORDERED: PANTOPRAZOLE SOD 20 MG DELAYED RELEASE TAB PO SCH (09:00)
[2017-01-13] MEDS: SODIUM CHLORIDE 0.9% FLUSH 10 ML FLUSH IV FLUSH SCH ×2 (09:00→19:59)
[2017-01-13] MEDS: PANTOPRAZOLE SOD 40 MG DELAYED RELEASE TAB PO SCH (10:11)
[2017-01-13] MEDS: MULTIVITAMINS/MINERALS THERAPEUTIC TAB PO SCH ×2 (10:11→19:56)
[2017-01-13] MEDS: DOCUSATE SODIUM 50 MG/SENNA 8.6 MG TAB PO SCH ×2 (10:12→19:56)
[2017-01-13] MEDS: PHENYTOIN SODIUM 100 MG CAP PO SCH (10:12)
[2017-01-13] MEDS: POTASSIUM CHLORIDE 20 MEQ CONTROLLED RELEASE TAB PO SCH (10:12)
[2017-01-13] MEDS: PROMETHAZINE HCL 25 MG TAB PO PRN (10:24)
[2017-01-13] MEDS: MAGNESIUM HYDROXIDE SUSP 30 ML CUP PO PRN (10:27)
[2017-01-13] MEDS: MORPHINE SULFATE 8 MG/ML INJ IV PUSH PRN (12:51)
[2017-01-13] MEDS: ATORVASTATIN 40 MG TAB PO SCH (15:08)
[2017-01-13] MEDS: EZETIMIBE 10 MG TAB PO SCH (15:08)
[2017-01-13] MEDS: oxyCODONE/ACETAMINOPHEN 5 MG/325 MG TAB PO PRN ×2 (15:09→19:56)
[2017-01-14] MEDS: ENOXAPARIN SODIUM 30 MG/0.3 ML SYRINGE SQ SCH ×2 (05:27→18:32)
[2017-01-14] MEDS: oxyCODONE/ACETAMINOPHEN 5 MG/325 MG TAB PO PRN ×4 (05:29→19:30)
[2017-01-14 08:00] VITALS: BP 123/67; PULSE 90; RESP 18; TEMP 98.4; O2SAT 95
[2017-01-14] MEDS: POTASSIUM CHLORIDE 20 MEQ CONTROLLED RELEASE TAB PO SCH (08:38)
[2017-01-14] MEDS: PANTOPRAZOLE SOD 40 MG DELAYED RELEASE TAB PO SCH (08:38)
[2017-01-14] MEDS: ATENOLOL 50 MG TAB PO SCH (08:39)
[2017-01-14] MEDS: MULTIVITAMINS/MINERALS THERAPEUTIC TAB PO SCH ×2 (08:39→19:30)
[2017-01-14] MEDS: PHENYTOIN SODIUM 100 MG CAP PO SCH (08:39)
[2017-01-14] MEDS: FUROSEMIDE 40 MG TAB PO SCH (08:39)
[2017-01-14] MEDS: SODIUM CHLORIDE 0.9% FLUSH 10 ML FLUSH IV FLUSH SCH ×2 (08:42→19:39)
[2017-01-14] MEDS: MORPHINE SULFATE 8 MG/ML INJ IV PUSH PRN (08:42)
[2017-01-14 08:47] VITALS: O2SAT 93
[2017-01-14] MEDS: DOCUSATE SODIUM 50 MG/SENNA 8.6 MG TAB PO SCH ×2 (08:47→19:30)
--- NOTE | 2017-01-14 10:20 | PD.ORT.PN ---
Subjective Post Op Day #: 3 Subjective Remarks Patient is OOB in chair with mild incisional pain today. Pain controlled with Morphine. Patient requesting one more night stay. Objective Vitals Vital Signs Date Time Temp Pulse Resp B/P (MAP) Pulse Ox O2 Delivery O2 Flow Rate FiO2 01/14/17 08:00 98.4 90 18 123/67 (85) 95 01/13/17 23:40 99.1 85 18 120/64 (82) 99 01/13/17 21:30 99.6 97 18 112/56 (74) 98 01/13/17 12:50 107/57 (74) I/O 01/13/17 01/13/17 01/13/17 01/14/17 01/14/17 01/14/17 07:00 15:00 23:00 07:00 15:00 23:00 Intake Total 1200 ml 1200 ml 480 ml 240 ml Output Total 1300 ml 700 ml 800 ml Balance -100 ml 1200 ml -220 ml -560 ml Intake Oral 1200 ml 1200 ml 480 ml 240 ml Output Urine Total 1300 ml 700 ml 800 ml # Voids 6 # Bowel Movements 1 0 0 Result Diagram: 01/11/17 1828 Procedures Right MARYANA Objective Remarks Patient is OOB in chair Alert awake and oriented -3. No acute distress. Pulmonary: Normal respiratory effort. Right lower extremity: Neurovascularly intact, +EHL/FHL, dressing clean, dry and intact. + PT/DP pulses. Supple compartments. Negative Homans sign. Left lower extremity: neurovascularly intact Assessment & Plan Ortho Post Op Day #: 3 Problem List: Assessment and Plan POD #3, Right total hip arthroplasty Doing well, expected postop pain, no complaints. Antibiotics: Ancef, vancomycin DVT prophylaxis, Lovenox while in hospital (xeralto at discharge for 4 weeks) Weightbearing status: As tolerated Dressing change: Reinforce as needed. Do not change. Dispo: Stable and okay to discharge from orthopedic standpoint. Likely DC home with home health on Sunday Follow-up: 2 weeks, Dr. Weinberg, [facility] Jan 14, 2017 10:20
--- NOTE | 2017-01-14 10:37 | HHI.PR ---
Subjective Remarks Follow-up for right hip end-stage arthritis and avascular necrosis status post right total hip replacement. Patient is currently doing well. Denies any chest pain, shortness of breath, fever or chills. Sitting in his chair. Objective Vitals Vital Signs Date Time Temp Pulse Resp B/P (MAP) Pulse Ox O2 Delivery O2 Flow Rate FiO2 01/14/17 08:00 98.4 90 18 123/67 (85) 95 01/13/17 23:40 99.1 85 18 120/64 (82) 99 01/13/17 21:30 99.6 97 18 112/56 (74) 98 01/13/17 12:50 107/57 (74) I/O 01/13/17 01/13/17 01/13/17 01/14/17 01/14/17 01/14/17 07:00 15:00 23:00 07:00 15:00 23:00 Intake Total 1200 ml 1200 ml 480 ml 240 ml Output Total 1300 ml 700 ml 800 ml Balance -100 ml 1200 ml -220 ml -560 ml Intake Oral 1200 ml 1200 ml 480 ml 240 ml Output Urine Total 1300 ml 700 ml 800 ml # Voids 6 # Bowel Movements 1 0 0 Result Diagram: 01/11/17 1828 Imaging Last Impressions Hip and Pelvis X-Ray 01/11/17 0000 Signed Impressions: Service Date/Time: December 18:08 - CONCLUSION: Right total hip arthroplasty has an expected postoperative radiographic appearance. No acute complication demonstrated. Noe Bhandari MD Objective Remarks GENERAL: Alert, oriented 3, NAD. SKIN: Warm and dry. HEAD: Normocephalic. EYES: No scleral icterus. No injection or drainage. NECK: Supple, trachea midline. No JVD or lymphadenopathy. CARDIOVASCULAR: Regular rate and rhythm without murmurs, gallops, or rubs. RESPIRATORY: Breath sounds equal bilaterally. No accessory muscle use. GASTROINTESTINAL: Abdomen soft, non-tender, nondistended. MUSCULOSKELETAL: No cyanosis, or edema. Status post right total hip replacement. Able to move all toes. BACK: Nontender without obvious deformity. No CVA tenderness. Procedures 01/11/2017 Right total hip replacement through anterior approach A/P Problem List: (1) Status post total hip replacement, right ICD Code: Z96.641 - Presence of right artificial hip joint (2) Avascular necrosis of bone of right hip ICD Code: M87.051 - Idiopathic aseptic necrosis of right femur (3) CAD (coronary artery disease) ICD Code: I25.10 - Atherosclerotic heart disease of [place] coronary artery without angina pectoris Status: Chronic (4) HTN (hypertension) ICD Code: I10 - Essential (primary) hypertension Status: Chronic (5) HLD (hyperlipidemia) ICD Code: E78.5 - Hyperlipidemia, unspecified Status: Chronic (6) GERD (gastroesophageal reflux disease) ICD Code: K21.9 - Gastro-esophageal reflux disease without esophagitis Status: Chronic (7) Anxiety ICD Code: F41.9 - Anxiety disorder, unspecified Status: Chronic Assessment and Plan Mr. Grider is a 71-year-old male with history of CAD s/p stents x2, HTN, HLD, GERD , anxiety, and daily marijuana use presented to the hospital with right hip end- stage arthritis from avascular necrosis, now s/p right total hip replacement by Dr. Weinberg on 01/11. Hospitalist service consulted for medical management. Right Hip End-Stage Arthritis with Avascular Necrosis: s/p Right Total Hip Replacement 01/11/[address] Weinberg. -continue pain control with percocet prn and IV morphine prn -DVT prophylaxis with Lovenox per ortho -anticipate discharge on Monday 01/15 per attending -bowel regimen while on narcotics, monitor BMs CAD/HTN/HLD: chronic, appears stable. Patient had outpatient stress test 1 week ago, reportedly unremarkable. Housekeeper Child Care is Dr. Story. - Continue atorvastatin 40 mg daily, Zetia 10 mg daily. - Continue Lasix 40 mg daily, atenolol 50 mg daily. Anxiety: chronic, stable -continue patient's home clonazepam 0.5mg daily GERD: chronic, stable - We'll continue Protonix 40 mg daily. Full code, Lovenox 30 mg every 12 hours. Discussed with ISABEL. Che Gonzalez DO Jan 14, 2017 10:37 am
[2017-01-14 12:00] VITALS: BP 110/66; PULSE 83; RESP 18; TEMP 99.2; O2SAT 99
[2017-01-14] MEDS: ATORVASTATIN 40 MG TAB PO SCH (15:03)
[2017-01-14] MEDS: EZETIMIBE 10 MG TAB PO SCH (15:03)
[2017-01-14 16:00] VITALS: BP 116/63; PULSE 18; RESP 18; TEMP 99.8; O2SAT 100
[2017-01-14 20:20] VITALS: BP 112/61; PULSE 81; RESP 17; TEMP 99.3; O2SAT 98
[2017-01-14 23:15] VITALS: BP 121/58; PULSE 77; RESP 17; TEMP 98.4; O2SAT 99
[2017-01-15] MEDS: ENOXAPARIN SODIUM 30 MG/0.3 ML SYRINGE SQ SCH (05:32)
[2017-01-15] MEDS: oxyCODONE/ACETAMINOPHEN 5 MG/325 MG TAB PO PRN ×3 (05:32→12:52)
[2017-01-15 07:30] VITALS: BP 131/60; PULSE 76; RESP 18; TEMP 99.3; O2SAT 96
[2017-01-15] MEDS: ATENOLOL 50 MG TAB PO SCH (07:34)
[2017-01-15] MEDS: POTASSIUM CHLORIDE 20 MEQ CONTROLLED RELEASE TAB PO SCH (07:34)
[2017-01-15] MEDS: FUROSEMIDE 40 MG TAB PO SCH (07:34)
[2017-01-15] MEDS: PANTOPRAZOLE SOD 40 MG DELAYED RELEASE TAB PO SCH (07:34)
[2017-01-15] MEDS: MULTIVITAMINS/MINERALS THERAPEUTIC TAB PO SCH (07:35)
[2017-01-15] MEDS: PHENYTOIN SODIUM 100 MG CAP PO SCH (07:35)
[2017-01-15] MEDS: SODIUM CHLORIDE 0.9% FLUSH 10 ML FLUSH IV FLUSH SCH (07:39)
[2017-01-15] MEDS: DOCUSATE SODIUM 50 MG/SENNA 8.6 MG TAB PO SCH (07:39)
[2017-01-15] MEDS: MAGNESIUM HYDROXIDE SUSP 30 ML CUP PO PRN (07:39)
[2017-01-15 11:00] VITALS: BP 122/58; PULSE 75; RESP 17; TEMP 99; O2SAT 100
[2017-01-15 15:18] VITALS: BP 133/63; PULSE 71; RESP 18; TEMP 99.1; O2SAT 100
[2017-01-15] MEDS: ATORVASTATIN 40 MG TAB PO SCH (15:20)
[2017-01-15] MEDS: EZETIMIBE 10 MG TAB PO SCH (15:20)
== END 2017-01-15 16:43 | disposition home or self-care (01) | DRG 470 ==
LOC: HSDI 01-11 10:31 → N06A 01-11 19:49
PROVIDERS: ADMIT Orthopaedic Surgery; ATTEND Orthopaedic Surgery
PROC: 0SR904A Replacement of Right Hip Joint with Ceramic on Polyethylene Synthetic Substitute, Uncemented, Open Approach (ICD-10-PCS; principal; 2017-01-11 13:43)
DX: M16.11 Unilateral primary osteoarthritis, right hip (principal); M87.051 Idiopathic aseptic necrosis of right femur; I10 Essential (primary) hypertension; I25.10 Atherosclerotic heart disease of native coronary artery without angina pectoris; K21.9 Gastro-esophageal reflux disease without esophagitis; E78.5 Hyperlipidemia, unspecified; F41.9 Anxiety disorder, unspecified; Z95.5 Presence of coronary angioplasty implant and graft
CPT/HCPCS: 36430; 73502; 76000; 85014; 85018; 86850; 86900; 86901; 94150; C1776; C9290; J0131; J0690; J1100; J1170; J1580; J1650; J1885; J2250; J2270; J2405; J2710; J3010; J3370; J7030; J7050; J7120; P9035; Q0169

== ENCOUNTER → 2017-05-31 | Outpatient (CLI) | payer MEDICARE, OTHER ==
[~2017-05-31] MED LIST changes: -ASPI-110 PO; +ASPI-183 PO; +COMMODE 3-IN-11 MIS; +COMMODE BEDSIDE1 MI1; +EZET10 PO; -OMEP20TA PO; +OMEP20TA93 PO; +PERC5TAB12 PO; +WALKER WHEELS/F1 MIS; +XARE10TA PO; -ZETI10TA5 PO
--- NOTE | 2017-05-31 11:32 | RADRPT ---
EXAM DATE/TIME: 05/31/2017 10:48 [facility] COMPARISON: CHEST PA & LAT, December 27, 2016, 11:59. INDICATIONS : Evaluate for pneumonia, pneumothorax or communicable disease. Pre op reverse left shoulder arthroplas ty. MEDICAL HISTORY : Hypertension. SURGICAL HISTORY : Coronary artery stent. ENCOUNTER: Initial ACUITY: 1 day PAIN SCORE: 0/10 LOCATION: Bilateral chest FINDINGS: PA and lateral views of the chest demonstrate the lungs to be symmetrically aerated without evidence of mass, infiltrate or effusion. The cardiomediastinal contours are unremarkable. Osseous structure s are intact. CONCLUSION: No acute disease. Noe Adame MD on May 31, 2017 at 11:28 Board Certified Radiologist. This report was verified electronically.
[2017-05-31 11:55] LABS: BILIRUBIN, URINE NEG (NEG); BLOOD, URINE NEG (NEG); GLUCOSE,URINE NEG (NEG); KETONE, URINE NEG (NEG); NITRITE,URINE NEG (NEG); PH, URINE 6.5 (5.0-8.5); URINE COLOR LIGHT-YELLOW (YELLW/STRAW); URINE LEUKOCYTE ESTERASE NEG (NEG)
[2017-05-31 11:57] LABS: BASOPHIL % 0.5 % (0.0-2.0); EOSINOPHIL % 0.9 % (0.0-4.0); HEMATOCRIT 36.3 % (39.0-51.0); HEMOGLOBIN 11.9 GM/DL (13.0-17.0); LYMPH % 29.9 % (9.0-44.0); LYMPHOCYTE # 1.5 TH/MM3 (1.0-4.8); MEAN CELL VOLUME 73.4 FL (80.0-100.0); MEAN CORPUSCULAR HEMOGLOBIN 24.2 PG (27.0-34.0); MEAN CORPUSCULAR HGB CONC 32.9 % (32.0-36.0); MEAN PLATELET VOLUME 8.1 FL (7.0-11.0); MONO % 8.5 % (0.0-8.0); MONOCYTE # 0.4 TH/MM3 (0-0.9); NEUT % 60.2 % (16.0-70.0); PLATELET COUNT 109 TH/MM3 (150-450); RED BLOOD COUNT 4.94 MIL/MM3 (4.50-5.90); RED CELL DISTRIBUTION WIDTH 19.6 % (11.6-17.2)
[2017-05-31 12:02] LABS: PROTHROMBIN TIME - PATIENT 10.2 SEC (9.8-11.6)
[2017-05-31 12:22] LABS: BICARBONATE 32.2 MEQ/L (21.0-32.0); CREATININE 1.04 MG/DL (0.60-1.30)
--- NOTE | 2017-06-01 10:01 | EKG ---
Date Performed: 05/31/2017 Time Performed: 10:14:11 PTAGE: 71 years EKG: Sinus rhythm MODERATE INTRAVENTRICULAR CONDUCTION DELAY BORDERLINE ECG Compared to PREVIOUS TRACING , QRS duration is slightly longer. PREVIOUS TRACIN12/27/2016 11.06 DOCTOR: Shon Dillon Interpretating Date/Time 06/01/2017 10:00:39
== END ==
LOC: CPRE 09:45
PROVIDERS: ATTEND Orthopaedic Surgery
DX: Z01.810 Encounter for preprocedural cardiovascular examination (principal); Z01.812 Encounter for preprocedural laboratory examination; Z01.818 Encounter for other preprocedural examination; M75.122 Complete rotator cuff tear or rupture of left shoulder, not specified as traumatic; T84.84XA Pain due to internal orthopedic prosthetic devices, implants and grafts, initial encounter
CPT/HCPCS: 36415; 71046; 80048; 81001; 85025; 85610; 93005

== ENCOUNTER 2017-06-13 06:22 | Inpatient (IN) | payer MEDICARE, OTHER ==
--- NOTE | 2017-06-04 12:21 | MH ---
cc: NIDIATHANHBETTY DATE OF ADMISSION: 06/13/2017 ADMITTING DIAGNOSIS 1. Failed hemiarthroplasty, left shoulder. 2. Complete rotator cuff tear, left shoulder. 3. Pain, left shoulder HISTORY OF PRESENT ILLNESS The patient is a 71-year-old white male who has had a lengthy history of difficulty involving his left shoulder area. In August of 2015 he experienced a seizure of undetermined etiology and was thereafter evaluated in the emergency room at [facility] where he was admitted under the care of Dr. Edward Weinberg with a diagnosis of bilateral proximal humeral fracture dislocations. The patient underwent operative intervention that included simultaneous bilateral hemiarthroplasties of the shoulder with the operative report describing a watertight seal of the rotator cuff. Unfortunately the patient experienced ongoing pain about the shoulder area bilaterally in spite of an extended course of physical therapy intervention extending for more than 5 months. No further disposition regarding the shoulder symptoms was completed and during this interval of time the patient became symptomatic with pain of his right hip as related to osteoarthritis. He later underwent a right total hip arthroplasty again being completed by Dr. Weinberg. Because of ongoing difficulty involving the shoulder area the patient presented to the undersigned physician in February of this past year for second opinion evaluation. At that time he described considerable incapacitation with regards to both upper extremities and limited mobility associated with pain that affected all activities of daily living. He had been taking ibuprofen 200 mg several times daily with minimal benefit being noted. At that time physical findings were felt to be suspicious for complete disruption of the rotator cuff with x-ray studies demonstrating elevation of the humeral implant in relationship to the glenoid. The patient did subsequently undergo a CT scan evaluation the results of which identified a massive full-thickness rotator cuff tear involving most if not all of the supraspinatus and infraspinatus tendons with atrophy of the muscle belly and the humeral prosthesis abutting the undersurface of the acromion. There was focal rupture of the central and anterior portion of the deltoid origin and considerable hypertrophy and osteophytosis of the residual humeral head. There was suspicion for a 12 mm osteochondral body anteriorly in the axillary recess with a joint effusion. The patient returned to the office in follow-up disposition and at that time the findings of the study were reviewed and treatment options discussed. The pros and cons of continuing with conservative management versus operative intervention that would involve conversion to a reverse shoulder arthroplasty were outlined. Emphasis was made regarding the fact that the decision to proceed with surgery would be left entirely to the patient's discretion as well as it being noted that in spite of operative treatment the patient might experience residual limitations with weakness about the shoulder area associated with some permanent loss of mobility. The patient indicated his full understanding in this regard and expressed his desire to proceed accordingly. PAST MEDICAL HISTORY His past medical history, hospitalizations and surgeries have included: 1. Three previous operative procedures of his left hip following a fracture, the third procedure involving total hip replacement. 2. Status post right total hip arthroplasty. 3. Cardiac stent insertions. 4. Tonsillectomy. 5. Colonoscopy. The patient's medical illnesses include: 1. Heart disease. 2. Seizure disorder. 3. Acid reflux. MEDICATIONS Current medications: 1. Crestor 40 mg daily. 2. Zetia 10 mg daily. 3. Furosemide 40 mg daily. 4. Atenolol 50 mg daily. 5. 325 mg aspirin tablet daily. 6. Dilantin 100 mg, three pills daily. 7. Potassium 20 mEq daily. 8. Omeprazole 20 mg daily. 9. Multivitamin tablet daily. ALLERGIES The patient denies any known drug allergies. REVIEW OF SYSTEMS He wears glasses for reading purposes. Denies headache or syncope. Seizure as noted. No sinus congestion or epistaxis. Diminished auditory acuity. No tinnitus. No bleeding gums or dysphagia. Has a partial dental bridge in the maxillary region. Denies cough, shortness of breath, upper respiratory infection, pneumonia or tuberculosis. No angina. He is status post cardiac stent insertion. Appetite is good. Bowel movements are regular. No hepatitis, gallbladder disease, ulcers or hemorrhoids. No urinary tract infection. He does have occasional urinary incontinence. No prostate disease. Fracture of the left hip as described. No psychiatric illness. His remaining review of systems is unremarkable and noncontributory. FAMILY HISTORY The patient has been 46 years. His is 72 years of age and indicated to be in good health. One son and one daughter indicated to be in good health. Family history is positive for hypertension, heart disease, Alzheimer's disease, renal cancer and alcoholism. SOCIAL HISTORY The patient completed a master's degree in [employer] science. 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 He denies active use of tobacco since 1970 but had been a two pack per day user for at least 5 years prior to that time. He denies ethanol consumption for the past 10 years but had been a heavy drinker in years past. PHYSICAL EXAMINATION Height 5 feet 7 inches, weight 173 pounds. GENERAL: An alert, oriented and responsive 71-year-old white male who sits quietly upon the examination table with no obvious distress. HEAD, EYES, EARS, NOSE, AND THROAT: Pupils are equally round and reactive to light. Extraocular movements full. Sclera clear. External nares clear. External auditory canals clear. Semi-edentulous in the maxillary distribution. Mucous membranes pink and moist. Pharynx is clear. NECK: Supple. Active range of motion without appreciable pain. Carotid pulse palpable bilaterally. Trachea midline. Thyroid without enlargement. LUNGS: Clear to auscultation and percussion. BACK: No CVA tenderness. No discomfort throughout the dorsolumbar spine. HEART: Regular rhythm. No murmur or gallop. ABDOMEN: Soft, nontender. Bowel sounds present. RECTAL: Per primary care physician. EXTREMITIES: Left Shoulder: A well-healed surgical wound about the anterior aspect of the left shoulder consistent with prior history of surgery. There is generalized atrophy involving the anterior and superior aspect of the shoulder region including the deltoid origin. There is limited mobility of the shoulder joint in all ranges assessed being consistent with a pseudoparalysis of the shoulder. No obvious instability or crepitation. Drop arm test positive. Levy sign positive. There is weakness of both internal and external rotation. Wind Power Project Manager strength intact. Sensory intact. NEUROLOGIC: Cranial nerves II-XII grossly intact excluding diminished auditory acuity. IMPRESSION 1. Failed hemiarthroplasty, left shoulder. 2. Complete rotator cuff tear, left shoulder. 3. Pain, left shoulder. PLAN Left reverse shoulder arthroplasty. The nature of the planned surgical procedure, the potential complications and risks associated, the expectations of surgery and the consent form were thoroughly reviewed with the patient in the presence of his prior to admission to the hospital. Josr has indicated his full understanding regarding all of the above and given consent to proceed with treatment as outlined. Medical evaluation and clearance for surgery will be completed by his primary care physician, Dr. Kilo Saravia. Betty Richmond MD NBS/BT /11:39 AM /11:51 AM
[~2017-06-13] VITALS: Ht 170.2 cm; Wt 80.1 kg
[~2017-06-13 06:22] MED LIST changes: -CLON0.5T PO; -COMMODE 3-IN-11 MIS; -COMMODE BEDSIDE1 MI1; -PERC5TAB12 PO; -WALKER WHEELS/F1 MIS; -XARE10TA PO
[2017-06-13] MEDS ORDERED: ceFAZolin 2 GM PREMIX 50 ML IV SCH (06:45)
[2017-06-13] MEDS ORDERED: POVIDONE IODINE 7.5% SCRUB 118 ML BOTTLE TOPICAL SCH (06:45)
[2017-06-13] MEDS ORDERED: METOPROLOL TARTRATE 25 MG TAB PO PRN (07:00)
[2017-06-13] MEDS ORDERED: POVIDONE IODINE 5% (ANTISEPSIS KIT) 4 APPLICATIONS EACH NARE PRN (07:00)
[2017-06-13] MEDS ORDERED: LACTATED RINGER'S 1000 ML IV PRN (07:00)
[2017-06-13] MEDS ORDERED: SODIUM CHLORID 0.9% 500 ML IV PRN (07:00)
[2017-06-13] MEDS ORDERED: INSULIN HUMAN REGULAR 1,000 UNITS/10 ML VIAL SQ PRN (07:00)
[2017-06-13] MEDS ORDERED: CHLORHEXIDINE GLUCONATE 2 % 1 PACK (2 CLOTHS) TOPICAL PRN (07:00)
[2017-06-13] MEDS ORDERED: ROPIVACAINE 0.5% PF INJ 30 ML VIAL ONE (07:30)
[2017-06-13] MEDS ORDERED: LIDOCAINE HCL 1% PF 5 ML AMPULE ONE (07:35)
[2017-06-13 08:02] LABS: AUTOMATED NEUTROPHIL # 3.9 TH/MM3 (1.8-7.7); BASOPHIL % 0.3 % (0.0-2.0); EOSINOPHIL % 0.8 % (0.0-4.0); HEMATOCRIT 35.2 % (39.0-51.0); HEMOGLOBIN 11.8 GM/DL (13.0-17.0); LYMPH % 24.5 % (9.0-44.0); LYMPHOCYTE # 1.4 TH/MM3 (1.0-4.8); MEAN CELL VOLUME 74.3 FL (80.0-100.0); MEAN CORPUSCULAR HEMOGLOBIN 24.8 PG (27.0-34.0); MEAN CORPUSCULAR HGB CONC 33.4 % (32.0-36.0); MEAN PLATELET VOLUME 8.3 FL (7.0-11.0); MONO % 8.8 % (0.0-8.0); MONOCYTE # 0.5 TH/MM3 (0-0.9); NEUT % 65.6 % (16.0-70.0); PLATELET COUNT 90 TH/MM3 (150-450); RED BLOOD COUNT 4.74 MIL/MM3 (4.50-5.90); RED CELL DISTRIBUTION WIDTH 21.5 % (11.6-17.2); WHITE BLOOD COUNT 5.9 TH/MM3 (4.0-11.0)
[2017-06-13] MEDS ORDERED: MIDAZOLAM HCL 2 MG/2 ML VIAL ONE (08:14)
[2017-06-13] MEDS ORDERED: BUPIVACAINE LIPOSOME PF 1.3% 20 ML VIAL ONE (08:15)
[2017-06-13 09:09] LABS: BASOPHILS 1 % (0-2); METAMYELOCYTES 1 % (0-1); MONOCYTES 9 % (0-8); NEUTROPHIL # MANUAL DIFF 3.2 TH/MM3 (1.8-7.7); POLYS (SEG NEUTROPHILS) 54 % (16-70)
[2017-06-13 09:10] LABS: KERATOCYTES OCC (NORMAL); LYMPHOCYTES 34 % (9-44); OVALOCYTES 1+ (NORMAL)
[2017-06-13] MEDS ORDERED: TRANEXAMIC ACID 1 GM PRIOR TO PROCEDURE IV SCH ×2 (10:00)
[2017-06-13] MEDS ORDERED: ceFAZolin INJ 1,000 MG VIAL ONE (11:05)
[2017-06-13] MEDS ORDERED: PROPOFOL 200 MG/20 ML AMP IV ONE (12:00)
[2017-06-13] MEDS ORDERED: LIDOCAINE HCL 1% PF 5 ML SYRINGE OTHER ONE (12:00)
[2017-06-13] MEDS ORDERED: SODIUM CHLOR 0.9% 250 ML INJ 250 ML IV ONE (12:00)
[2017-06-13] MEDS ORDERED: ePHEDrine/NS 25 MG/5 ML SYRINGE IV ONE (12:00)
[2017-06-13] MEDS ORDERED: SODIUM CHLORID 0.9% 500 ML INJ 500 ML IV ONE (12:00)
[2017-06-13] MEDS ORDERED: ROCURONIUM INJ 50 MG/5 ML SYRINGE IV PUSH ONE (12:00)
[2017-06-13] MEDS ORDERED: PHENYLEPH/NS 1000 MCG/10 ML SYR IV ONE (12:00)
[2017-06-13] MEDS ORDERED: ceFAZolin INJ 1,000 MG VIAL IV ONE ×2 (12:00→13:45)
[2017-06-13] MEDS ORDERED: ONDANSETRON HCL 4 MG/2 ML VIAL IV ONE (12:00)
[2017-06-13] MEDS ORDERED: LACTATED RINGER'S 1000 ML INJ 1,000 ML IV ONE (12:00)
[2017-06-13] MEDS ORDERED: TRANEXAMIC ACID 1 GM POST-OP IV SCH ×2 (13:00)
[2017-06-13] MEDS ORDERED: MORPHINE SULFATE 4 MG/ML INJ ONE (14:54)
[2017-06-13] MEDS ORDERED: ZOLPIDEM TARTRATE 5 MG TAB PO PRN (15:00)
[2017-06-13] MEDS ORDERED: Post-op Orders (for Pharmacy) XX ONE (15:00)
[2017-06-13] MEDS ORDERED: TRANEXAMIC ACID INJ 1,000 MG in SODIUM CHLORIDE 0.9% INJ 100 ML IV SCH (15:00)
[2017-06-13] MEDS ORDERED: ACETAMINOPHEN/HYDROcodone 325 MG/5 MG TAB PO PRN (15:00)
[2017-06-13] MEDS ORDERED: BISACODYL 10 MG SUPP RECTAL PRN (15:00)
[2017-06-13] MEDS ORDERED: NALOXONE HCL 0.4 MG/ML AMP IV PUSH PRN (15:00)
[2017-06-13] MEDS ORDERED: ONDANSETRON HCL 4 MG/2 ML VIAL IVP PRN (15:00)
[2017-06-13] MEDS ORDERED: DO NOT ADM ANY ANTICOAGULANT DRUGS PRN (15:15)
[2017-06-13] MEDS: DEXT 5%-NACL 0.45% 1000 ML INJ 1,000 ML IV SCH ×2 (15:20→23:00)
[2017-06-13 15:22] LABS: AUTOMATED NEUTROPHIL # 22.4 TH/MM3 (1.8-7.7); BASOPHIL % 0.1 % (0.0-2.0); EOSINOPHIL % 0.1 % (0.0-4.0); HEMATOCRIT 34.6 % (39.0-51.0); HEMOGLOBIN 11.4 GM/DL (13.0-17.0); LYMPH % 8.8 % (9.0-44.0); LYMPHOCYTE # 2.3 TH/MM3 (1.0-4.8); MEAN CELL VOLUME 78.1 FL (80.0-100.0); MEAN CORPUSCULAR HEMOGLOBIN 25.8 PG (27.0-34.0); MONO % 5.7 % (0.0-8.0); MONOCYTE # 1.5 TH/MM3 (0-0.9); NEUT % 85.3 % (16.0-70.0); PLATELET COUNT 130 TH/MM3 (150-450); RED BLOOD COUNT 4.43 MIL/MM3 (4.50-5.90); RED CELL DISTRIBUTION WIDTH 21.6 % (11.6-17.2); WHITE BLOOD COUNT 26.3 TH/MM3 (4.0-11.0)
[2017-06-13] MEDS: MORPHINE SULFATE 30 MG/30 ML PCA IV SCH ×2 (15:24→22:54)
--- NOTE | 2017-06-13 15:28 | RADRPT ---
EXAM DATE/TIME: 06/13/2017 15:07 [facility] COMPARISON: CHEST PA & LAT, May 31, 2017, 10:48. INDICATIONS : Post op left shoulder. MEDICAL HISTORY : Hypertension. SURGICAL HISTORY : Coronary artery stent. ENCOUNTER: Initial ACUITY: 1 day PAIN SCORE: 0/10 LOCATION: Left shoulder. FINDINGS: The patient is post revision arthroplasty of the left shoulder. With the hardware appears well-positi oned. There is now a long stemmed humeral component. The alignment is good. CONCLUSION: 1. Uncomplicated left shoulder revision arthroplasty. 2. The visualized pulmonary parenchyma is clear. Elkin Montalvo MD on June 13, 2017 at 15:26 Board Certified Radiologist. This report was verified electronically.
--- NOTE | 2017-06-13 15:51 | MP ---
cc: BETTY ELENA DATE OF SURGERY 06/13/2017 PREOPERATIVE DIAGNOSIS 1. Failed hemiarthroplasty, left shoulder. 2. Complete rotator cuff tear, left shoulder. 3. Pain, left shoulder. POSTOPERATIVE DIAGNOSIS 1. Failed hemiarthroplasty, left shoulder. 2. Complete rotator cuff tear, left shoulder. 3. Pain, left shoulder. PROCEDURE Full revision arthroplasty with conversion to reverse shoulder arthroplasty. SURGEON Basilio. ANESTHESIA General endotracheal. INDICATIONS This is a 71-year-old white male with a lengthy history of left shoulder pain. His history dates back to August 2015 when he experienced a seizure of undetermined etiology, later being evaluated in the emergency room at [facility] where he was diagnosed as having bilateral proximal humeral fracture dislocations. The patient was admitted to the hospital under the care of Dr. Edward Weinberg and at that time underwent operative intervention that included simultaneous bilateral hemiarthroplasties of the shoulder. His operative report described a watertight seal of the rotator cuff. Unfortunately the patient experienced ongoing pain about the shoulder area bilaterally in spite of an extended course of physical therapy that extended from more than 5 months. No further disposition regarding his shoulder symptoms was completed. The patient continued to experience ongoing difficulty about both shoulders, especially on the left side, and presented to the undersigned physician in February of this past year for second opinion evaluation. At that time he described considerable incapacitation with regards to both upper extremities with limited mobility and pain that affected all activities of daily living. He had been taking ibuprofen 200 mg several times daily with minimal benefit. Physical findings were felt to be suspicious for a complete disruption of his rotator cuff with x-ray studies demonstrating elevation of the humeral implant in relationship to the glenoid. The patient subsequently underwent a CT scan evaluation, the results of which identified a massive full-thickness rotator cuff tear involving most if not all of the supraspinatus and infraspinatus tendons with atrophy of the muscle belly and a humeral prosthesis abutting the undersurface of the acromion. There was focal rupture of the central and anterior portion of the deltoid origin and considerable hypertrophy and osteophytosis of the residual humeral head. There was suspicion for a 12 mm osteochondral body anteriorly in the axillary recess with joint effusion. The patient returned to the office in follow-up disposition and at that time the findings of the CT scan were reviewed and treatment options discussed. The pros and cons of continuing with conservative management versus operative intervention that would involve a conversion to a reverse shoulder arthroplasty were outlined. Emphasis was made regarding the fact that the decision to proceed with surgery will be left entirely to the patient's discretion as well as emphasis being made in spite of operative treatment, the patient was anticipated to experience some residual limitations and weakness about the shoulder area associated with a permanent loss of motion. The patient indicated his full understanding in this regard and expressed his desire to proceed accordingly. In compliance with his wishes he was scheduled for admission at this time in order that the above be accomplished. FORMAT Following the induction of satisfactory general anesthesia by endotracheal intubation the patient was positioned upon the operating table in a modified beach-chair configuration. The left shoulder and upper extremity were isolated with a U-drape thereafter being prepped with Betadine solution and draped into a sterile field in the routine manner. Prior to initiation of the actual surgical procedure the standard timeout protocol was completed. All parameters were appropriately addressed and confirmed by operating room personnel. A previous surgical scar about the anterior aspect of the shoulder was utilized as a landmark for initiating the new skin incision which was extended from the inferior margin of the clavicle with the axillary crease. The incision was developed through underlying subcutaneous and fibrotic tissue with hemostasis maintained by electrocautery. Because of significant scar formation the deltopectoral interval was not clearly outlined but was slowly developed in a distal to proximal orientation. The cephalic vein was not found. Considerable adhesions were noted about the subdeltoid bursa that required extensive dissection to facilitate mobilization. There was pronounced attenuation of the subscapularis tendon with absence of the supraspinatus and infraspinatus tendons being noted. With the shoulder maintained in a slightly externally rotated posture the residual portion of the subscapularis tendon was divided in a superior to inferior orientation, the medial segment of which was tagged with #1 Tycron suture. The humeral head was thereafter delivered into the wound. The head of the humeral component was removed from the stem portion and at that time it was determined that because of the proud positioning of the stem it would be necessary to remove the stem to facilitate completion of the procedure. Utilizing flexible osteotomes in a more proximal aspect of the stem progressive freeing of the proximal portion was accomplished and thereafter using the insertion handle attached the stem was removed from the confines of the humerus. Sequential broaching was accomplished thereafter from 8 through 12 mm into the proximal humerus. The proximal portion of the humerus was also contoured to facilitate appropriate orientation about the proximal humerus. Attention was thereafter directed to the glenoid region. Retractors were placed posteriorly, anteriorly and superiorly and thereafter the glenoid labrum as well as the middle and inferior glenohumeral ligaments were resected as was an abundance of scar tissue that facilitated exposure of the glenoid in a 360 degree orientation. The glenoid guide was thereafter used for inserting the guide pin in the central portion of the glenoid and thereafter the glenoid was contoured with reaming and an RSP baseplate of the [employer] wildlife management professor was screwed into place. Two 5.0 x 26 locking screws were placed superiorly and inferiorly and two 5.0 x 18 locking screws were placed anterior posteriorly to secure the baseplate into place. With the baseplate firmly seated an RSP 40 x 4 glenosphere head was firmly seated onto the baseplate and secured in place with the locking screw. Attention was returned to the proximal humerus. A 12 x 175 RSP AltiVate stem was thereafter inserted into the proximal humerus in approximately 30 degrees of retroversion and a trial reduction followed utilizing an RSP 40 x 4 head with an RSP 8 mm spacer. An RSP 40 semi-constrained poly cup was used for the trial reduction. The shoulder was reduced and carried through a passive range of motion with stability being demonstrated. With all trial components being removed the permanent components were attached to the humeral stem as described above and the shoulder was again reduced and repeat range of motion again noted stability as previously described. Final irrigation was accomplished with hemostasis maintained. The remnant of the subscapularis tendon was repaired with 0 Vicryl suture. The deltopectoral interval was re-approximated with a running 0 Vicryl suture. The remaining portion of the wound was closed in layers in the routine manner, skin margins being re-approximated with a running subcuticular 3-0 Vicryl suture over which Steri-Strips were applied. Xeroform gauze and a bulky dry sterile dressing were placed. The shoulder was supported in an arm sling. Anesthesia was discontinued. The patient was thus transferred to a hospital bed and returned to the recovery room in satisfactory condition having tolerated his operative procedure well. Estimated blood loss was approximately 1000 cc as determined per Anesthesia. The patient did receive one unit of packed RBCs in the immediate postoperative period. All implants were of the [employer] wildlife management professor. MD NOREEN Wilkes/MARK /2:36 PM /3:31 PM
[2017-06-13 16:30] VITALS: BP 118/67; PULSE 80; RESP 18; TEMP 96.6; O2SAT 94
[2017-06-13 17:03] VITALS: O2SAT 92
[2017-06-13 20:00] VITALS: BP 122/71; PULSE 79; RESP 20; TEMP 97.4; O2SAT 99
[2017-06-13] MEDS: PCA - TOTAL MG MORPHINE DELIVERED PER SHIFT SCH (20:31)
[2017-06-14] VITALS: BP 128/80; PULSE 79; RESP 20; TEMP 97.2; O2SAT 96
[2017-06-14] MEDS: MORPHINE SULFATE 30 MG/30 ML PCA IV SCH ×2 (03:28→15:25)
[2017-06-14 04:00] VITALS: BP 153/87; PULSE 77; RESP 20; TEMP 97.7; O2SAT 98
[2017-06-14] MEDS: PCA - TOTAL MG MORPHINE DELIVERED PER SHIFT SCH ×3 (05:50→22:00)
[2017-06-14] MEDS ORDERED: ASPI-183 PO (05:55)
[2017-06-14] MEDS ORDERED: HYDR-3516 PO (05:55)
--- NOTE | 2017-06-14 06:00 | HHI.FF ---
Face to Face Verification Diagnosis: (1) Complete tear of left rotator cuff Occupational Therapy Left UE Weight Bearing: WB as tolerated Left UE Range of Motion: Active ROM Additional Instructions No external rotation > 30 degrees for initial 6 weeks post-op; otherwise follow routine TSA protocol Nursing Dressing Changes: Daily dressing change I have seen patient Josr Grider on 06/14/17. My clinical findings support the need for the requested home health care services because: Limited ability to care for self High risk of falls I certify that my clinical findings support that this patient is homebound because: Post-op weakness Unsteady gait/balance Unsafe to leave home unassisted Robert Richmond MD Jun 14, 2017 06:00
[2017-06-14 07:10] LABS: HEMATOCRIT 29.5 % (39.0-51.0)
[2017-06-14] MEDS: DEXT 5%-NACL 0.45% 1000 ML INJ 1,000 ML IV SCH ×3 (07:56→22:21)
[2017-06-14 08:00] VITALS: BP 166/79; PULSE 81; RESP 18; TEMP 97.2; TEMP 97.4; O2SAT 99
[2017-06-14] MEDS: ATORVASTATIN 80 MG TAB PO SCH (09:27)
[2017-06-14] MEDS: ATENOLOL 50 MG TAB PO SCH (09:27)
[2017-06-14] MEDS: PANTOPRAZOLE SOD 20 MG DELAYED RELEASE TAB PO SCH (09:27)
[2017-06-14] MEDS: PHENYTOIN SODIUM 100 MG CAP PO SCH (09:27)
[2017-06-14] MEDS ORDERED: INFLUENZA VIRUS VACCINE (QUADRIVALENT) 0.5 ML SYR IM ONE (10:00)
[2017-06-14] MEDS ORDERED: PNEUMOCOCCAL POLYVALENT INJ 25 MCG/0.5 ML SYR IM ONE (10:00)
[2017-06-14 12:00] VITALS: BP 130/73; PULSE 91; RESP 18; TEMP 97.8; O2SAT 98
[2017-06-14] MEDS: ACETAMINOPHEN/HYDROcodone 325 MG/5 MG TAB PO PRN ×2 (13:51→17:49)
[2017-06-14 16:00] VITALS: BP 139/67; PULSE 82; RESP 18; TEMP 98.8; O2SAT 98
[2017-06-14 20:00] VITALS: BP 176/94; PULSE 86; RESP 14; TEMP 100.9; O2SAT 96
--- NOTE | 2017-06-14 22:31 | PD.CONS ---
HPI Service [facility] Consult Requested By Primary Care Physician Kilo Saravia M.D. Diagnoses: History of Present Illness 71-year-old male with a history of hypertension, hyperlipidemia, seizure disorder, coronary artery disease with 2 stents years ago, who is currently postop day 1 from left shoulder replacement. Patient reports pain is under control. Denies any chest pain, shortness of breath, nausea, vomiting. Reports feeling well prior to surgery. Denies any constipation. He reports most recent seizure was his only seizure, many years ago. Review of Systems Except as stated in HPI: all other systems reviewed are Neg Past Family Social History Allergies: Coded Allergies: No Known Allergies (Unverified , 01/11/17) Past Medical History Seizure disorder. Coronary artery disease with 2 stents placed over a year ago. GERD Hyperlipidemia Hypertension Past Surgical History Cardiac catheterization with stenting Left hip fracture repair., Total hip replacement Tonsillectomy Colonoscopy Reported Medications Crestor 40 mg daily. Zetia 10 mg daily. Furosemide 40 mg daily. Atenolol 50 mg daily. 325 mg aspirin tablet daily. Dilantin 100 mg, three pills daily. Potassium 20 mEq daily. Omeprazole 20 mg daily. Multivitamin tablet daily. Family History Mother from Alzheimer's at age 85. Father experienced TN at age 45 , subsequently from renal cell carcinoma. Patient with 2 children both healthy. Social History Nonsmoker. Nondrinker. Denies illicit drugs. Physical Exam Vital Signs Vital Signs Date Time Temp Pulse Resp B/P (MAP) Pulse Ox O2 Delivery O2 Flow Rate FiO2 06/14/17 16:00 98.8 82 18 139/67 (91) 98 06/14/17 15:25 18 06/14/17 14:58 18 06/14/17 13:53 18 06/14/17 12:00 97.8 91 18 130/73 (92) 98 06/14/17 08:00 97.4 81 18 166/79 (108) 99 06/14/17 05:50 18 06/14/17 04:00 97.7 77 20 153/87 (109) 98 06/14/17 03:28 18 06/14/17 00:00 97.2 79 20 128/80 (96) 96 06/13/17 22:54 18 Physical Exam GENERAL: This is a well-nourished, well-developed patient, in no apparent distress. SKIN: No rashes, ecchymoses or lesions. Cool and dry. HEAD: Atraumatic. Normocephalic. No temporal or scalp tenderness. EYES: Pupils equal round and reactive. Extraocular motions intact. No scleral icterus. No injection or drainage. ENT: Nose without bleeding, purulent drainage or septal hematoma. Throat without erythema, tonsillar hypertrophy or exudate. Uvula midline. Airway patent. NECK: Trachea midline. No JVD or lymphadenopathy. Supple, nontender, no meningeal signs. CARDIOVASCULAR: Regular rate and rhythm without murmurs, gallops, or rubs. RESPIRATORY: Clear to auscultation. Breath sounds equal bilaterally. No wheezes , rales, or rhonchi. GASTROINTESTINAL: Abdomen soft, non-tender, nondistended. No hepato-splenomegaly , or palpable masses. No guarding. MUSCULOSKELETAL: Extremities without clubbing, cyanosis, or edema. No joint tenderness, effusion, or edema noted. No calf tenderness. Negative Homans sign bilaterally.postoperative left shoulder not examined. Peripheral perfusion is intact. NEUROLOGICAL: Awake and alert. Cranial nerves II through XII intact. Motor and sensory grossly within normal limits. Five out of 5 muscle strength in all muscle groups. Normal speech. Laboratory Laboratory Tests Test 06/14/17 06:35 Hemoglobin 10.0 Hematocrit 29.5 Result Diagram: 06/14/17 0635 Assessment and Plan Assessment and Plan //Coronary artery disease. //Hypertension - Chronic. Continue home medications. Anticoagulation as per surgical service. Hold Lasix and potassium for now, and monitor fluid status closely. Recommend starting back on antiplatelet as soon as feasible. //Hyperlipidemia. Chronic. Continue home medications. //Seizure disorder. Chronic. Continue home medications. //Chronic anemia. Hemoglobin 11.8 at the time of surgery, unchanged from December 2016. Follow-up primary care as outpatient. //GERD. Continue home medications. Discussed Condition With patient, nurse Andres Cook MD Jun 14, 2017 22:31
[2017-06-15] VITALS: BP 151/78; PULSE 88; RESP 15; TEMP 98.4; O2SAT 95
[2017-06-15] MEDS: CALCIUM CARBONATE 500 MG CHEWABLE TAB PO PRN ×2 (04:01→09:14)
[2017-06-15] MEDS: ACETAMINOPHEN/HYDROcodone 325 MG/5 MG TAB PO PRN ×3 (04:25→13:26)
[2017-06-15] MEDS: PCA - TOTAL MG MORPHINE DELIVERED PER SHIFT SCH (06:00)
[2017-06-15 06:15] LABS: AUTOMATED NEUTROPHIL # 11.7 TH/MM3 (1.8-7.7); BASOPHIL % 0.1 % (0.0-2.0); EOSINOPHIL % 0.1 % (0.0-4.0); HEMATOCRIT 24.1 % (39.0-51.0); HEMOGLOBIN 8.3 GM/DL (13.0-17.0); LYMPH % 7.6 % (9.0-44.0); LYMPHOCYTE # 1.1 TH/MM3 (1.0-4.8); MEAN CELL VOLUME 76.8 FL (80.0-100.0); MEAN CORPUSCULAR HEMOGLOBIN 26.4 PG (27.0-34.0); MEAN CORPUSCULAR HGB CONC 34.3 % (32.0-36.0); MEAN PLATELET VOLUME 8.3 FL (7.0-11.0); MONO % 10.5 % (0.0-8.0); MONOCYTE # 1.5 TH/MM3 (0-0.9); NEUT % 81.7 % (16.0-70.0); PLATELET COUNT 65 TH/MM3 (150-450); RED BLOOD COUNT 3.14 MIL/MM3 (4.50-5.90); RED CELL DISTRIBUTION WIDTH 21.4 % (11.6-17.2); WHITE BLOOD COUNT 14.3 TH/MM3 (4.0-11.0)
[2017-06-15 06:35] LABS: ALBUMIN 2.5 GM/DL (3.4-5.0); BICARBONATE 29.2 MEQ/L (21.0-32.0); CALCIUM 7.4 MG/DL (8.5-10.1); CREATININE 0.78 MG/DL (0.60-1.30); MAGNESIUM 1.9 MG/DL (1.5-2.5); PHOSPHORUS 1.8 MG/DL (2.5-4.9)
[2017-06-15 08:00] VITALS: BP 138/71; PULSE 82; RESP 16; TEMP 98.4; O2SAT 95
[2017-06-15] MEDS ORDERED: POTASSIUM CHLORIDE 20 MEQ CONTROLLED RELEASE TAB PO SCH (09:00)
[2017-06-15] MEDS ORDERED: FUROSEMIDE 40 MG TAB PO SCH (09:00)
[2017-06-15] MEDS: ATORVASTATIN 80 MG TAB PO SCH (09:13)
[2017-06-15] MEDS: PANTOPRAZOLE SOD 20 MG DELAYED RELEASE TAB PO SCH (09:13)
[2017-06-15] MEDS: ATENOLOL 50 MG TAB PO SCH (09:14)
[2017-06-15] MEDS: PHENYTOIN SODIUM 100 MG CAP PO SCH (09:14)
[2017-06-15 12:00] VITALS: BP 120/60; PULSE 79; RESP 16; TEMP 99; O2SAT 96
[2017-06-15] MEDS ORDERED: MISCELLANEOUS PHARMACY INFORMATION XX ONE (15:00)
--- NOTE | 2017-06-18 19:49 | MD ---
cc: BETTY RICHMOND,COLEMAN Steele M.D. ADMISSION DATE: 06/13/2017 DISCHARGE DATE: 06/15/2017 ADMISSION DIAGNOSIS Failed hemiarthroplasty of the left shoulder, complete rotator cuff tear left shoulder and pain left shoulder. DISCHARGE DIAGNOSIS Failed hemiarthroplasty of the left shoulder, complete rotator cuff tear left shoulder and pain left shoulder. BRIEF HISTORY: A 71-year-old white male with a lengthy history of pain involving his left shoulder. In August 2015 he experienced a seizure of undetermined etiology and was thereafter evaluated in the emergency room of [facility] where he was admitted to the hospital under the care of Dr. Edward Weinberg with a diagnosis of bilateral proximal humeral fracture dislocations. The patient underwent operative intervention that included simultaneous bilateral hemiarthroplasty of the shoulder with the operative report describing a watertight seal of the rotator cuff. Unfortunately the patient experienced ongoing pain about the shoulder area bilaterally in spite of an extended course of physical therapy for more than 5 months. No further disposition regarding his shoulder symptoms was completed. Because of ongoing difficulty about the shoulder area, the patient presented to the undersigned physician in February of this past year for a second opinion evaluation. At that time he described considerable incapacitation with regards to both upper extremities with limited mobility associated with pain that affected all activities of daily living. He had been taking ibuprofen 200 mg several times daily with minimal benefit. The physical findings were felt to be suspicious for complete disruption of his rotator cuff with x-ray studies demonstrating elevation of the humeral implant in relationship to the glenoid. The patient did subsequently undergo a CT scan evaluation, the results of which identified a massive full-thickness rotator cuff tear involving most, if not all, of the supraspinatus and infraspinatus tendons and atrophy of the muscle belly and the humeral prosthesis abutting the undersurface of the acromion. There was focal rupture of the central and anterior portion of the deltoid origin with considerable hypertrophy and osteophytosis of the remaining femoral head. There was suspicion for a 12 mm osteochondral body anterior to the axillary recess with associated joint effusion. The patient returned to the office in follow-up disposition. At that time the findings of the study were reviewed and treatment options discussed. The pros and cons of continuing with conservative management versus operative intervention that would involve conversion to a reverse shoulder arthroplasty were outlined. Emphasis was made regarding the fact that the decision to proceed with surgery would be left entirely to the patient's discretion as well as it being noted that in spite of operative treatment, the patient might experience residual limitations with weakness about the shoulder area associated with some permanent loss of mobility. The patient indicated his full understanding in this regard and expressed his desire to proceed accordingly. In compliance with his wishes, he was scheduled to be admitted at this time in order that the above be accomplished. Physical examination at that time of admission revealed a well-healed surgical wound about the anterior aspect of the left shoulder that was consistent with prior history of surgery. There was generalized atrophy involving the anterior and superior aspect of the shoulder region including the deltoid origin. 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 No obvious instability or crepitation. Drop arm test positive, Levy sign positive, weakness of both internal and external rotation. Allergist/Pediatric Pulmonologist strength intact. Sensory intact. HOSPITAL COURSE Prior to admission to the hospital the patient underwent medical evaluation and clearance for surgery as completed by his primary care physician, Dr. Coleman Saravia. He was taken to the operating room on 13 June 2017 and at that time underwent a full revision arthroplasty of his left shoulder with conversion to reverse shoulder components. The patient was noted to have tolerated his operative procedure well, his postoperative course stable thereafter. Hemoglobin/hematocrit assessment postoperatively was 11.4 and 34.6 respectively. The patient was progressively mobilized under the guidance of the physical therapy, follow up examination of the surgical wound noted to be intact healing favorably, no evidence of infection. Medical followup per the hospitalist service. DVT prophylaxis initiated. director of career services consulted to assist with discharge planning. The patient had expressed his desire to be discharged home and continue his rehabilitation on an outpatient basis. Plans were finalized in this regard and pending medical clearance he was scheduled for discharge on the second postoperative day at which time he was noted to be making steady progress with regards to his initial rehabilitation. He was scheduled to be seen in office followup in approximately 4 weeks. His condition at that time was stable and prognosis favorable. DISCHARGE MEDICATIONS: Hydrocodone 05/325 #60. Aspirin 325 mg 1 tablet twice daily for 2 weeks #30. Betty Richmond MD NBS/GAMA /6:06 AM /7:35 PM
== END 2017-06-15 14:00 | disposition home health service (06) | DRG 483 ==
LOC: HSDI 06:22 → N06B 16:33
PROVIDERS: ADMIT Orthopaedic Surgery; ATTEND Orthopaedic Surgery
PROC: 30233N1 Transfusion of Nonautologous Red Blood Cells into Peripheral Vein, Percutaneous Approach (ICD-10-PCS; 2017-06-13)
PROC: 0RRK00Z Replacement of Left Shoulder Joint with Reverse Ball and Socket Synthetic Substitute, Open Approach (ICD-10-PCS; principal; 2017-06-13 10:00)
DX: T84.098A Other mechanical complication of other internal joint prosthesis, initial encounter (principal); I10 Essential (primary) hypertension; M75.122 Complete rotator cuff tear or rupture of left shoulder, not specified as traumatic; Y79.2 Prosthetic and other implants, materials and accessory orthopedic devices associated with adverse incidents; I25.10 Atherosclerotic heart disease of native coronary artery without angina pectoris; G40.909 Epilepsy, unspecified, not intractable, without status epilepticus; E78.5 Hyperlipidemia, unspecified; D64.9 Anemia, unspecified; K21.9 Gastro-esophageal reflux disease without esophagitis; M25.551 Pain in right hip; Z96.641 Presence of right artificial hip joint; Z95.5 Presence of coronary angioplasty implant and graft
CPT/HCPCS: 36430; 73020; 80069; 83735; 85007; 85014; 85018; 85025; 85027; 86850; 86900; 86901; 86920; 90686; 90732; 94150; C9290; J0690; J2250; J2270; J2370; J2405; J2795; J3010; J7040; J7050; J7120; P9016; P9035; Q2038